=== PATIENT | male | born 1985 | race Caucasian/White ===

== ENCOUNTER 2023-02-24 11:20 | Outpatient (AMB) | payer OTHER, SELFPAY ==
[2023-02-24 12:47] VITALS: BP 120/80; PULSE 74; O2SAT 98; BMI 19.3
--- NOTE | 2023-02-24 12:47 | MHC.OFFWIV ---
Intake Vital Signs 02/24/23 12:47 Height 6 ft Weight 142 lb BMI 19.3 BP 120/80 Blood Pressure Location Rt brachial Position Sitting Pulse 74 Pulse Source Pulse Oximeter Pulse Oximetry (%) 98 Oxygen Delivery Method Room Air Intake Visit Reasons: TESTING LEAD Rash Shoulder/neck Lobby Intake Note: Patient here for a rash that started on the sides and traveled to the neck. He states it is very dry,itchy and spreading. Patient Tobacco Use Status: Never used Tobacco Allergies No Known Allergies Allergy (Verified 02/24/23 13:31) Medication List - Last Reconciled 02/24/23 by Olvin Miguel MD buprenorphine-naloxone 12-3 mg 15 mg sublingual DAILY Do you need a note to return to daycare/school/sports/work: Yes HPI TESTING LEAD Rash Shoulder/neck Lobby HPI Details 38-year-old male presents to the office for a sick visit. His history is very unreliable. Patient is reporting he has a rash in the neck in the past week. Initially the rash was around his groin which is now occurring around his neck. He was seen at a walk-in elsewhere and given prednisone to which she responded. He stopped taking the prednisone approximately of a week ago. He also reports that he was in [facility] for abdominal pain. Admits to history of narcotic abuse and is now taking Suboxone. Patient denies any IV drug use. [facility] Social History Patient Tobacco Use Status: Never used Tobacco Physical Exam Vital Signs: Last Vital Signs Pulse 74 02/24/23 12:47 BP 120/80 02/24/23 12:47 Pulse Ox 98 02/24/23 12:47 Oxygen Delivery Method Room Air 02/24/23 12:47 BMI result Body Mass Index 19.3 Skin Other: Several, diffuse, erythematous rash, each lesion is circular with raised edges and thickened overlying skin. Few scales are present. These lesions are identical in both the neck and the groin area. Assessment & Plan Assessment & Plan (1) Rash: Code(s): R21 - Rash and other nonspecific skin eruption Plan Triamcinolone cream prescribed. Patient has been seen at [facility] care before. I strongly recommended that he see them for a dermatology consult. Orders: Orders Basic Metabolic Panel Today R21 - Rash and other nonspecific skin eruption Liver Panel Today R21 - Rash and other nonspecific skin eruption HIV Ab/Ag Today R21 - Rash and other nonspecific skin eruption Complete Blood Count no Diff Today R21 - Rash and other nonspecific skin eruption Erythrocyte Sedimentation Rate Today R21 - Rash and other nonspecific skin eruption Coding Level of Care Code Est Pt Level 3 (03169) Diagnoses Rash R21
== END 2023-02-24 13:56 | disposition home or self-care (01) ==
PROVIDERS: Visit Provider Internal Medicine
DX: R21 Rash and other nonspecific skin eruption (principal)
CPT/HCPCS: 99213

== ENCOUNTER 2023-02-24 13:39 | Outpatient (REF) | payer OTHER, SELFPAY | END 2023-02-24 13:40 | disposition home or self-care (01) | LOC: HO.HMGCLDS 13:39 | PROVIDERS: Visit Provider Internal Medicine | DX: R21 Rash and other nonspecific skin eruption (principal) | CPT/HCPCS: 36415; 80048; 80076; 85027; 85652; 87389 ==

== ENCOUNTER 2024-04-04 16:17 | Emergency (ER) | payer OTHER, SELFPAY ==
--- NOTE | ~2024-04-04 | XR_ITS ---
EXAMINATION: XR ABDOMEN KUB CLINICAL INDICATION: Pain. COMPARISON: None available. TECHNIQUE: AP views of the abdomen. FINDINGS: Moderate air and stool throughout the bowel. Nonobstructive bowel gas pattern. No abnormal soft tissue calcification. No acute osseous abnormality. The visualized lung bases are clear. XR/XR KUB IMPRESSION: Moderate air and stool throughout the bowel. Electronically signed by: Elbert Degroot MD 04/04/2024 04:57 PM [facility]
[2024-04-04 16:21] VITALS: BP 130/80; PULSE 85; O2SAT 98
[2024-04-04 16:32] VITALS: BP 110/73; PULSE 83; RESP 18; TEMP 36.4; O2SAT 100; BMI 19.0
[2024-04-04] MEDS: 0.9 % Sodium Chloride 500 ML IV (16:48)
[2024-04-04] MEDS: Ketorolac Tromethamine 15 MG/ML VIAL IVPUSH (16:49)
[2024-04-04] MEDS: Metoclopramide HCl 10 MG/2 ML VIAL IVPUSH (16:49)
[2024-04-04 16:56] LABS: MANUAL DIFF FLAG NO
[2024-04-04 17:19] LABS: Alanine Aminotransferase 25 U/L (0-40); Albumin Level 4.5 g/dL (3.5-5.0); Alkaline Phosphatase 58 U/L (39-117); Anion Gap 11 (12-20); Aspartate Amino Transferase 30 U/L (5-37); Bilirubin Total 1.5 mg/dL (0.0-1.0); Blood Urea Nitrogen 18 mg/dL (9-16); Calcium 9.3 mg/dL (8.4-10.2); Carbon Dioxide 26 mmol/L (22-29); Chloride 109 mmol/L (96-108); Creatinine Clr Calc Pharmacy 102.3; Estimated Glomerular Filt Rate > 60; Glucose Random 80 mg/dL (60-115); Lipase 13 U/L (8-78); Potassium 3.7 mmol/L (3.3-5.1); Sodium 142 mmol/L (135-145); Total Protein 7.5 g/dL (6.5-8.0)
[2024-04-04 17:40] LABS: Basophils Percent Auto 0.4 % (0-2); Eosinophils Percent Auto 0.2 % (0-4); Hematocrit 41.3 % (42.0-52.0); Hemoglobin 14.2 g/dl (14.0-18.0); Imm Gran Abs Auto 0.01 X10*3/uL (0.00-0.03); Imm Gran Pct Auto 0.1 % (0.0-0.4); Lymphocytes Absolute Auto 4.5 X10*3/uL (1.2-4.9); Lymphocytes Percent Auto 45.7 % (20-40); Mean Corpuscular HGB Conc 34.4 g/dl (31.0-36.0); Mean Corpuscular Hemoglobin 29.6 pg (27.0-33.0); Mean Corpuscular Volume 86.2 fL (80.0-98.0); Mean Platelet Volume 9.3 fL (9.4-12.4); Monocytes Absolute Auto 0.8 X10*3/uL (0.1-1.2); Monocytes Percent Auto 7.6 % (2-11); Neutrophils Absolute Auto 4.6 x10*3/uL (2.0-8.3); Platelet Count 279 X10*3/uL (160-400); Red Blood Count 4.79 X10*6/uL (4.60-5.80); Red Cell Distribution Width 13.4 % (11.0-16.0); White Blood Count 9.9 X10*3/uL (4.8-10.8)
--- NOTE | 2024-04-04 17:49 | ED.ABDPAIN ---
HPI - Abdominal Pain General Chief Complaint: Abdominal Pain Stated Complaint: ABD PAIN/ BLOOD OUT OF RECTUM PER EMS Time Seen by Provider: 04/04/24 16:27 Source: patient Limitations: no limitations History of Present Illness ED Provider: Saadia Adorno PA-C HPI narrative: 39-year-old male with a history of opiate use disorder now on Suboxone presents with abdominal pain. Patient states the pain is across the entire lower abdomen, unable to describe the nature of the pain. Last normal bowel movement was 4 days ago. Patient admits that he does struggle with constipation. Over the past few days, he is only passing small amounts of hard stool. Associated nausea. Denies abdominal distention, inability to pass flatus, or vomiting. Related Data Home Medications ?Medication ?Instructions ?Recorded ?Confirmed buprenorphine 12 mg-naloxone 3 mg 15 mg sublingual DAILY 02/24/23 sublingual film Previous Rx's ?Medication ?Instructions ?Recorded triamcinolone acetonide 0.025 % 1 appl topical BID #15 grams 02/24/23 topical cream metoclopramide HCl 10 mg tablet 10 mg PO Q6H PRN nausea and 04/04/24 vomiting #8 tabs Allergies Allergy/AdvReac Type Severity Reaction Status Date / Time No Known Allergies Allergy Verified 04/04/24 16:33 Review of Systems Review of Systems Yes all other systems are reviewed and are negative Constitutional: Denies fatigue and Denies fever(s) Cardiovascular: Denies chest pain and Denies dyspnea Respiratory: Denies cough and Denies dyspnea Gastrointestinal: Reports abdominal pain, Denies bloating, Reports constipation, Reports nausea and Denies vomiting Endocrine: Denies fatigue PMFSH Past Medical History Attestation statement: The following information was validated with the patient. Social History Social History Patient Tobacco Use Status: Never used Tobacco Advance Directives: No Advance Directives Information Provided: No Physical Exam ED Vital Signs: Vital Signs - 24 hr 04/04/24 16:32 Temperature 97.6 F Pulse Rate 83 Respiratory Rate 18 Blood Pressure 110/73 Pulse Oximetry 100 Oxygen Delivery Method Room Air BMI result Body Mass Index 19.0 Const Other: Alert, overall well-appearing Orientation/consciousness: patient oriented x3 Resp Other: Nonlabored respiration Cardio Other: Normal peripheral perfusion GI Other: Abdomen is soft, nondistended, patient is guarding against my exam prior to palpating the abdomen, with a objective palpation, there was no guarding no rigidity. Skin Other: Warm dry no rash Neuro General: patient oriented x3, no focal motor deficits and CN's II-XI intact bilaterally Psych Other: Calm cooperative Medical Decision Making Medical Decision Making MDM Narrative: 39-year-old male with a history of opiate use disorder now on Suboxone presents with abdominal pain. Patient states the pain is across the entire lower abdomen, unable to describe the nature of the pain. Last normal bowel movement was 4 days ago. Patient admits that he does struggle with constipation. Over the past few days, he is only passing small amounts of hard stool. Associated nausea. Denies abdominal distention, inability to pass flatus, or vomiting. Problem: Constipation History: Per patient I have considered the following differential diagnoses: Fecal impaction, constipation, bowel obstruction Plan: Patient is likely constipated, he does not have any obstructive symptoms. We will screen basic labs, A KUB and give IV fluid Reglan I have independently reviewed the following tests: Labs: No leukocytosis, not anemic, no electrolyte abnormality KUB: XR/XR KUB IMPRESSION: Moderate air and stool throughout the bowel. Electronically signed by: Elbert Degroot MD 04/04/2024 04:57 PM [facility] Lab Data 04/04/24 16:49 04/04/24 16:49 Labs: Lab Results 04/04/24 Range/Units 16:49 WBC 9.9 (4.8-10.8) X10*3/uL RBC 4.79 (4.60-5.80) X10*6/uL Hgb 14.2 (14.0-18.0) g/dl Hct 41.3 L (42.0-52.0) % MCV 86.2 (80.0-98.0) fL MCH 29.6 (27.0-33.0) pg MCHC 34.4 (31.0-36.0) g/dl RDW 13.4 (11.0-16.0) % Plt Count 279 (160-400) X10*3/uL MPV 9.3 L (9.4-12.4) fL Immature Gran % (Auto) 0.1 (0.0-0.4) % Neut % (Auto) 46.0 (45-73) % Lymph % (Auto) 45.7 H (20-40) % [place] % (Auto) 7.6 (2-11) % Eos % (Auto) 0.2 (0-4) % Baso % (Auto) 0.4 (0-2) % Lymph # (Auto) 4.5 (1.2-4.9) X10*3/uL [place] # (Auto) 0.8 (0.1-1.2) X10*3/uL Eos # (Auto) 0.0 (0.0-0.4) X10*3/uL Baso # (Auto) 0.0 (0.0-0.2) X10*3/uL Abs Immat Gran (auto) 0.01 (0.00-0.03) X10*3/uL Absolute Neuts (auto) 4.6 (2.0-8.3) x10*3/uL Absolute Nucleated RBC 0.000 (0.0-0.012) X10*3/uL Nucleated RBC % (auto) 0.0 (0.0-0.2) /100WBC Sodium 142 (135-145) mmol/L Potassium 3.7 (3.3-5.1) mmol/L Chloride 109 H (96-108) mmol/L Carbon Dioxide 26 (22-29) mmol/L Anion Gap 11 L (12-20) BUN 18 H (9-16) mg/dL Creatinine 0.86 (0.5-1.4) mg/dL Estim Creat Clear Calc 102.3 Estimated GFR > 60 Random Glucose 80 (60-115) mg/dL Calcium 9.3 (8.4-10.2) mg/dL Magnesium 2.0 (1.6-2.6) mg/dL Total Bilirubin 1.5 H (0.0-1.0) mg/dL AST 30 (5-37) U/L ALT 25 (0-40) U/L Alkaline Phosphatase 58 (39-117) U/L Total Protein 7.5 (6.5-8.0) g/dL Albumin 4.5 (3.5-5.0) g/dL Lipase 13 (8-78) U/L Medications Administered Discontinued Medications Generic Name Dose Route Start Last Admin Trade Name Freq PRN Reason Stop Dose Admin Sodium Chloride 500 mls @ 500 mls/hr 04/04/24 16:29 04/04/24 16:48 Ns IV 04/04/24 17:28 500 mls/hr .Q1H ONE Administration Ketorolac Tromethamine 15 mg 04/04/24 16:29 04/04/24 16:49 Ketorolac Tromethamine 15 Mg/Ml Vial IVPUSH 04/04/24 16:30 15 mg ONCE ONE Administration Metoclopramide HCl 10 mg 04/04/24 16:29 04/04/24 16:49 Metoclopramide Hcl 10 Mg/2 Ml Vial IVPUSH 04/04/24 16:30 10 mg ONCE ONE Administration Discharge Plan Discharge Clinical Impression: Constipation Patient Disposition: Home, Self-Care Instructions: Constipation (ED) Additional Instructions: All of your labs were normal, the extra revealed that you are constipated. See home care instructions. The medication that you take, the Suboxone, is a constipating medication. You need to stay on a bowel regimen indefinitely to help prevent further episodes of constipation. In the meantime, you should take [id number] Colace, this is a stool softener, daily. You also need to take [id number] MiraLax, mix the powder with liquid per package instructions, drank the solution 2 to 3 times a day, until you begin having normal regular bowel movements. Once you clear your current stool burden, you may only require of the MiraLax a few times a week. Use the metoclopramide as needed for nausea. Follow up with your primary care provider as needed. Prescriptions: New metoclopramide HCl 10 mg tablet 10 mg PO Q6H PRN (Reason: nausea and vomiting) Qty: 8 0RF No Action buprenorphine-naloxone 12-3 mg film 15 mg sublingual DAILY triamcinolone acetonide 0.025 % cream 1 appl topical BID Qty: 15 0RF Stand Alone Forms: Work/School Release Print Language: Luxembourgish
[2024-04-04 18:08] VITALS: BP 110/73; PULSE 83; RESP 18; TEMP 36.4; O2SAT 100
== END 2024-04-04 18:09 | disposition home or self-care (01) ==
PROVIDERS: Physician Assistant Medical; Emergency Provider Emergency Medicine Emergency Medical Services
DX: R10.2 Pelvic and perineal pain (principal); K59.00 Constipation, unspecified; K92.1 Melena; R11.0 Nausea; Z79.899 Other long term (current) drug therapy
CPT/HCPCS: 36415; 74018; 80053; 83690; 83735; 85025; 96361; 96374; 96375; 99283; 99284; J1885; J2765

== ENCOUNTER 2025-02-08 13:18 | Outpatient (REF) | payer OTHER, SELFPAY ==
--- OUTSIDE RECORDS SUMMARY | 2025-02-08 13:15 | XMS_ITS | Encounter Summary ---
Author Organization [facility] [facility] Address [address] [place] [address] Care Team Providers Care Mechanical Handyman Name Role Phone Unavailable Primary Care Provider Unavailabl e Reason for Visit * Reason Comments OBAT F/U Encounter Details Date Type Department Care Team (Latest Contact Info) Description 02/08/2025 1:15 PM EDT Office Visit [facility] [address] [place] [address] Michael Man MD [address] [place], [place] [phone] Uncomplicated opioid dependence (CMS/HCC) (Primary Dx) Social History Tobacco Use Types Packs/Day Years Used Date Smoking Tobacco: Every Day Cigarettes Smokeless Tobacco: Never Alcohol Use Standard Drinks/Week Comments Not Currently 0 (1 standard drink = 0.6 oz pur e alcohol) Depression Answer Date Recorded Patient Health Questionnaire-9 Score 0 04/06/2024 Patient Health Questionnaire-9 Score 0 04/06/2024 Last PHQ-9: Questionnaire Data Not on file 1 06/06/2023 Housing Stability Answer Date Recorded What is your housing situation today? I have fabby ahrdy 04/06/[address] you li ve. Do you have problems with any of the following? None of the above 04/06/2024 Food Insecurity Answer Date Recorded Within the past 12 months, y ou worried that your food would run out before you got money to buy more: Never True 04/06/2024 Within the past 12 months,th e food you bought just didn't last and you didn't have enough money to get more: Never True Transportation Answer Date Recorded In the past 12 months, has l ack of transportation kept you from medical appts, meetings, work or from getting things needed for daily living? No 04/06/2024 Utilities Answer Date Recorded In the past 12 months, has t he electric, gas, oil or water company threatened to shut off services in your home? No 04/06/2024 Depression Answer Date Recorded Patient Health Questionnaire-2 Score 0 04/06/2024 Internet Access Answer Date Recorded Internet Access Q1 No 04/06/2024 Internet Access Q2 I do not want or need it 03/19 Sex and Gender Information Value Date Recorded Sex Assigned at Male 03/18/2022 10:40 AM EDT Legal Sex Male 10:40 AM EDT Gender Identity Male 03/18/2022 10:40 AM EDT Sexual Orientation Straight 03/18/2022 10 :40 AM EDT documented as of this encounter Progress Notes * Michael Man MD - 02/08/2025 1:15 PM EDT Subjective Patient ID: Mali Riojas is a 39 y.o. male. HPI Patient here today for Opioid Dependence RV. Patient on Suboxone dose of 16/4 mg On an 12 week schedule. Pt has been in the program for 2 years, 11 months. Induction date: 03/07/22. LFTs done 02/08/2025 Patient actively enrolled in behavioral health services. Commercial Singer: met with Raul nagy. DOMINIK GALEAS reviewed by provider. UTOX: not requested. Feels great . Taking Suboxone as prescribed. Takes Miralax prn Constipation. We discussed Sublocade; wants to discuss with his . Would like to to start tapering off Suboxone. Discussed slowly reducing dose at home, which he willtry. Has Narcan. Lives with and their 7 y.o. daughter and 's 16 y.o. daughter. Has 2 other daughters who live with their mother. Given Suboxone dental care instructions. He has upper dentures and is planning on having lower teeth extracted also. States I never took care of my teeth . Smoked 1/2 PPD. Now vapes. Had nightmares when using nicotine patches. No EtOH. Works at [employer]. The following portions of the chart were reviewed this encounter and updated as appropriate: Tobacco Allergies Meds Problems Med Hx Surg Hx Fam Hx Review of Systems Constitutional: Negative for fever. Respiratory: Negative for shortness of breath. Cardiovascular: Negative for chest pain. Gastrointestinal: Negative for abdominal pain. Skin: Negative for rash. Neurological: Negative for headaches. Objective Physical Exam Vitals and nursing note reviewed. Constitutional: Appearance: Normal appearance. HENT: Head: Normocephalic and atraumatic. Nose: Nose normal. Eyes: Conjunctiva/sclera: Conjunctivae normal. Pupils: Pupils are equal, round, and reactive to light. Pulmonary: Effort: Pulmonary effort is normal. Skin: General: Skin is warm and dry. Neurological: Mental Status: He is alert. Gait: Gait is intact. Psychiatric: Mood and Affect: Mood and affect normal. Behavior: Behavior normal. Procedures Assessment/Plan Diagnoses and all orders for this visit: Uncomplicated opioid dependence (CMS/HCC) Recovery support, harm reduction (including Narcan) and behavioral health attendance reviewed. Continue Suboxone 16/4 mg on 12 week schedule. Has Narcan. Labs were done today. documented in this encounter Plan of Treatment Upcoming Encounters Date Type Department Care Team (Late st Contact Info) Description 05/03/2025 1:15 PM EST Clinical Support [facility] [address] [place] [phone] Marcy Loera RN documented as of this encounter Visit Diagnoses Diagnosis Uncomplicated opioid dependence (CMS/HCC)- Primary documented in this encounter Additional Health Concerns Assessment Noted Time PHQ-9 Depression Total Score: 0 04/06/20 24 1:24 PM EST documented as of this encounter
--- OUTSIDE RECORDS SUMMARY | 2025-02-08 16:19 | XMS_ITS | Encounter Summary ---
Author Organization [employer] [facility] Address [address] [facility] [address] [place] [address] Care Team Providers Care Job Checker Name Role Phone Unavailable Primary Care Provider Unavailabl e Reason for Visit * Reason Comments Med Refill Encounter Details Date Type Department Care Team (Late st Contact Info) Description 11/09/2024 Refill [facility] [address] [place], [place] [phone] Michael Man MD [address] [place], [place] [phone] Uncomplicated opioid dependence (CMS/HCC) Social History Tobacco Use Types Packs/Day Years [...] your housing situation today? I have fabby hardy 04/06/[address] you li [...] AM EDT documented as of this encounter Plan of Treatment Upcoming Encounters Date Type Department Care Team (Late st Contact Info) Description 05/03/2025 1:15 PM EST Clinical Support [facility] [address] [place] [address] Marcy Loera RN documented as of this encounter Visit Diagnoses Diagnosis Uncomplicated opioid dependence (CMS/HCC) documented in this encounter Additional Health Concerns Assessment Noted Time PHQ-9 Depression Total Score: 0 04/06/20 24 1:24 PM EST documented as of this encounter
--- OUTSIDE RECORDS SUMMARY | 2025-02-08 16:19 | XMS_ITS | Encounter Summary ---
Author Organization [employer] Address [address] [place] [address] Care Team Providers Care Fitting Room Supervisor Name Role Phone Unavailable Primary Care Provider Unavailabl e Reason for Visit * Reason Comments Med Refill Encounter Details Date Type Department Care Team (Late st Contact Info) Description 05/25/2024 Refill [facility] [address] [place] [address] Tony Ruth MD [address] [place], [place] [phone] Uncomplicated opioid dependence (CMS/HCC) Social History Tobacco [...] Description 05/03/2025 1:15 PM EST Clinical Support [facility] [address] [place] [id number] Marcy Loera RN documented as of this encounter Visit Diagnoses Diagnosis Uncomplicated opioid dependence (CMS/HCC) documented in this encounter Additional Health Concerns Assessment Noted Time PHQ-9 Depression Total Score: 0 04/06/20 24 1:24 PM EST documented as of this encounter
--- OUTSIDE RECORDS SUMMARY | 2025-02-08 16:19 | XMS_ITS ---
Author Name [facility] Organization Unknown Care Team Organization Name Specialty Phone Email Start Date End Da te [facility] Sandrine Sanchez Primary Care 03/18/202312/17
--- OUTSIDE RECORDS SUMMARY | 2025-02-08 16:19 | XMS_ITS | Encounter Summary ---
Author Organization [employer] [facility] Address [address] [place] [address] Care Team Providers Care Medical Record Technician Name Role Phone Unavailable Primary Care Provider Unavailabl e Encounter Details Date Type Department Care Team (Latest Contact Info) Description 02/08/2025 Travel Social History Tobacco Use Types Packs/Day Years [...] Description 05/03/2025 1:15 PM EST Clinical Support [address] [phone] Marcy Loera RN documented as of this encounter Visit Diagnoses Not on filedocumented in this encounter Additional Health Concerns Assessment Noted Time PHQ-9 Depression Total Score: 0 04/06/20 24 1:24 PM EST documented as of this encounter
--- OUTSIDE RECORDS SUMMARY | 2025-02-08 16:19 | XMS_ITS | Encounter Summary ---
Author Organization [facility] Address [address] [place] [address] Care Team Providers Care Ladle Liner Helper Name Role Phone Unavailable Primary Care Provider Unavailabl e Reason for Visit * Reason Onset Date Comments Medication Question 01/29/2023 Encounter Details Date Type Department Care Team ([facility] Contact Info) Description 01/29/2023 Telephone [facility] [address] [place] [address] Shon Calhoun MD [address] [place] [address] Medication Question Social History Tobacco Use Types Packs/Day Years Used Date Smoking Tobacco: Every Day Cigarettes Smokeless Tobacco: Never Alcohol Use Standard Drinks/Week Comments Not Currently 0 (1 standard drink = 0.6 oz pur e alcohol) Sex and Gender Information Value Date Recorded Sex Assigned at Male 03/18/2022 10:40 AM EDT Legal Sex Male 10:40 AM EDT Gender Identity Male 03/18/2022 10:40 AM EDT Sexual Orientation Straight 03/18/2022 10 :40 AM EDT documented as of this encounter Miscellaneous Notes * Telephone Encounter - Poonam Ross - 01/29/2023 2:27 PM EDT Tc from pt stating that on last visit with Dr. Man it was stated to please call in for medication buprenorphine-naloxone (Suboxone) 12-3 MG per sublingual film to have an increase of it to 18 mg before medication runs out. Please contact pt at [phone] documented in this encounter Plan of Treatment Upcoming Encounters Date Type Department Care Team ([facility] st Contact Info) Description 05/03/2025 1:15 PM EST Clinical Support [address] [address] Marcy Loera RN documented as of this encounter Visit Diagnoses Not on filedocumented in this encounter
--- OUTSIDE RECORDS SUMMARY | 2025-02-08 16:19 | XMS_ITS | Encounter Summary ---
Author Organization [facility] Address [address] [place] [address] Care Team Providers Care Custom Designer Name Role Phone Unavailable Primary Care Provider Unavailabl e Encounter Details Date Type Department Care Team (Late Contact Info) Description 08/28/2023 Orders Only [facility] [address] [place] [address] Marcy Loera RN Uncomplicated opioid dependence (CMS/HCC) Social History Tobacco [...] Encounters Date Type Department Care Team (Late Contact Info) Description 05/03/2025 1:15 PM EST Clinical Support [facility] [address] [place] [address] Marcy Loera RN Scheduled Orders Name Type Priority Associated Diagnoses Orde r Schedule Hepatic Function Panel Lab Routine Uncomplicated opioid dependence (CMS/HCC) Expected: 08/28/2023 (Approximate), Expires: 08/27/2024 Hepatitis A Antibody, Total Lab Routine Uncomplicated opioid dependence (CMS/HCC) Expected: 08/28/2023 (Approximate), Expires: 08/27/2024 Hepatitis B Core Antibody, Total Lab Routine Uncomplicated opioid dependence (CMS/HCC) Expected: 08/28/2023 (Approximate), Expires: 08/27/2024 Hepatitis B Surface Antibody, Qualitative Lab Routine Uncomplicated opioid dependence (CMS/HCC) Expected: 08/28/2023 (Approximate), Expires: 08/27/2024 Hepatitis B surface antigen, EIA Lab Routine Uncomplicated opioid dependence (CMS/HCC) Expected: 08/28/2023 (Approximate), Expires: 08/27/2024 Hepatitis C Antibody with Reflex to HCV, RNA, Quantitative, Real-Time PCR Lab Routine Uncomplicated opioid dependence (CMS/HCC) Expected: 08/28/2023 (Approximate), Expires: 08/27/2024 HIV-1/2 Antigen and Antibodies, Fourth Generation, with Reflexes Lab Routine Uncomplicated opioid dependence (CMS/HCC) Expected: 08/28/2023 (Approximate), Expires: 08/27/2024 Syphilis Screen Lab Routine Uncomplicated opioid dependence (CMS/HCC) Expected: 08/28/2023 (Approximate), Expires: 08/27/2024 T-SPOT .TB Lab Routine Uncomplicated opioid dependence (CMS/HCC) Expected: 08/28/2023 (Approximate), Expires: 08/27/2024 documented as of this encounter Visit Diagnoses Diagnosis Uncomplicated opioid dependence (CMS/HCC) documented in this encounter
--- OUTSIDE RECORDS SUMMARY | 2025-02-08 16:19 | XMS_ITS | Clinical Summary ---
Author Organization [employer] Address [address] [facility] [address] [place] [address] Care Team Providers Care Director Of Physician Practices Name Role Phone Unavailable Primary Care Provider Unavailabl e Allergies No known active allergies Medications naloxone (Narcan) 4 mg/0.1 mL nasal spray Administer 4 mg into affected nostril(s) if needed for opioid reversal. May repeat every 2-3 minutes if needed, alternating nostrils, until medical assistance becomes available. Active nicotine polacrilex (Commit) 4 MG lozenge Dissolve 1 lozenge (4 mg) in the mouth every 2 (two) hours if needed for smoking cessation. 100 lozenge 12/18/19 23 Active buprenorphine -naloxone (Suboxone) 12-3 MG per sublingual filmIndicatio ns:Uncomplica ivana opioid dependence (CMS/HCC) Place 1 Film under the tongue Once per day for 28 days. 28 Film 1 12/12/19 24 Active buprenorphine -naloxone (Suboxone) 4-1 MG per sublingual filmIndicatio ns:Uncomplica ivana opioid dependence (CMS/HCC) Place 1 Film under the tongue Once per day for 28 days. 28 Film 1 12/12/19 24 Active nicotine (Nicoderm CQ) 14 MG/24HR patch Place 1 patch on the skin 1 (one) time each day at the same time. 42 patch 12/16/19 24 Active nicotine (Nicoderm CQ) 7 MG/24HR patch Place 1 patch on the skin 1 (one) time each day at the same time. 14 patch 12/16/19 24 Active polyethylene glycol, PEG, 3350 (MiraLax) 17 GM/SCOOP powder Take 17 g by mouth Once per day. 510 g 3 07/28/19 25 Active Buprenorphine HCl-Naloxone HCl (Suboxone) 8-2 MG SL filmIndicatio ns:Uncomplica ivana opioid dependence (CMS/HCC) Place 1 Film under the tongue 2 times daily. 56 Film 2 02/01/20 25 025 Active Buprenorphine HCl-Naloxone HCl (Suboxone) 8-2 MG SL filmIndicatio ns:Uncomplica ivana opioid dependence (CMS/HCC) Place 1 Film under the tongue 2 times daily. 56 Film 2 11/17/19 25 025 Discontinued(Re order (will not trigger notification to Pharmacy)) Active Problems Problem Noted Date Diagnosed Date Gallbladder polyp 02/11/2023 04/22/2023 Overview (04/22/2023): [facility] ER 02/05/23: Per impression common duct is mildly dilated to 0.7 cm, with smooth tapering distally. No obstructing stones visualized. This is of unclear clinical significance; correlate with laboratory testings for any signs of biliary obstruction. No gallstones seen. No sonographic evidence of acute cholecystitis. 0.2 cm gallbladder polyp . Opioid use disorder 04/10/2022 Tobacco use disorder 06/28/2015 Encounters Date Type Department Care Team Description 02/08/2025 1:15 PM EDT Office Visit [facility] [address] [place] [phone] Michael Man MD Uncomplicated opioid dependence (CMS/HCC) (Primary Dx) 02/08/2025 Travel 01/31/2025 Refill [facility] [address] [place] [address] Marcy Loera RN Uncomplicated opioid dependence (CMS/HCC) 11/16/2024 1:00 PM EDT Office Visit [facility] [address] [place] [address] Michael Man MD Uncomplicated opioid dependence (CMS/HCC) (Primary Dx) 11/16/2024 Travel 11/09/2024 Refill [facility] [address] [place] [address] Michael Man MD Uncomplicated opioid dependence (CMS/HCC) from Last 3 Months Immunizations Immunization Administration Dates Next Due Tdap 11/22/2015 Social History Tobacco Use Types Packs/Day Years Used Date Smoking Tobacco: Every Day Cigarettes Smokeless Tobacco: Never Tobacco Cessation:Ready to Q uit: Not Asked; Counseling Given: Not Answered Alcohol Use Standard Drinks/Week Comments Not Currently [...] Orientation Straight 03/18/2022 10 :40 AM EDT Last Filed Vital Signs Vital Sign Reading Time Taken Comments Blood Pressure 130/81 04/06/2024 1:23 PM EST Pulse 113 04/06/2024 1:23 PM EST Temperature 36.4 C (97.5 F) 04/06/2024 1:23 PM EST Respiratory Rate - - Oxygen Saturation - - Inhaled Oxygen Concentration - - Weight 76.1 kg (167 lb 12.8 oz) 022 12:10 AM EDT Height 182.9 cm (6') 03/07/2022 12:10 AM EDT Body Mass Index 22.76 03/07/2022 12:10 AM EDT Plan of Treatment Upcoming Encounters Date Type Department Care Team (Late st Contact Info) Description 05/03/2025 1:15 PM EST Clinical Support [address] [id number] Marcy Loera, VALERIE Health Maintenance Due Date Last Done Comments HIV Screening 1984 Lipid Panel 1984 Family Planning (PISQ) 02/09/1999 HPV Vaccines (1 - Male 3-dos e series) 02/09/1999 Hepatitis C Screening 02/09/2002 Hepatitis B Vaccines (1 of 3 - 19+ 3-dose series) 02/09/2003 Pneumococcal Vaccine: Pediatrics (0 to 5 Years) and At-Risk Patients (6 to 49) Years (1 of 2 - PCV) 02/09/2003 COVID-19 Vaccine ( - 2023-2 5 season) 2025 Influenza Vaccine (#1) 2025 Alcohol/Substance Use Screening 04/06/2025 04/06/2024 Depression Screening 04/06/2025 04/06/2024, 04/06/2024 SDOH Screening 04/06/2025 04/06/2024 DTaP/Tdap/Td Vaccines (2 - T d or Tdap) 11/21/2025 11/22/2015 Disability Screening 02/08/2026 02/08/2025 Tobacco Screening 02/08/2026 02/08/2025 Zoster Vaccines (1 of 2) 02/09/2034 RSV Patients and Patients Aged 60 years or older (1 - 1-dose 75+ series) 02/09/2059 HIB Vaccines Aged Out No longer eligi ble based on patient's age to complete this topic Hepatitis A Vaccines Aged Out No long er eligible based on patient's age to complete this topic IPV Vaccines Aged Out No longer eligi ble based on patient's age to complete this topic Meningococcal B Vaccine Aged Out No l onger eligible based on patient's age to complete this topic Meningococcal Vaccine Aged Out No florencio shun eligible based on patient's age to complete this topic RSV under 20 months Aged Out No longe r eligible based on patient's age to complete this topic Rotavirus Vaccines Aged Out No longer eligible based on patient's age to complete this topic Procedures Procedure Name Priority Date/Time Associated Diagnosis Comments POCT LELAND-14 URINE DRUG SCREEN Routine 11/16/2024 1:14 PM EDT Uncomplicated opioid dependence (CMS/HCC) from Last 3 Months Results * (ABNORMAL) POCT LELAND-14 Urine Drug Screen (11/16/2024 1:14 PM EDT) THC Positive(A) Negative Cocaine Screen, Urine Negative Negative Opiate Screen, Urine Negative Negative Methamphetamine Screen Urine Negative Negative Amphetamine Screen, Urine Negative Negative Benzodiazepines Screen, Urine Negative Negative Barbiturate Screen, Urine Negative Negative Methadone Screen, Urine Negative Negative Buprenophine Screen, Urine Positive(A) Negative TCA, Urine Negative Negative MDMA Urine Negative Negative ng/mL Oxycodone Screen, Urine Negative Negative Phencyclidine (PCP), Urine Negative Negative Fentanyl, Urine Negative Negative Urine Urine specimen obtained by clean catch procedure / Unknown 11/16/2024 1:14 PM EDT Michael Man MD POINT OF CARE TEST ENTER/EDIT OR DERABLES Final Result from Last 3 Months Insurance [facility]
--- OUTSIDE RECORDS SUMMARY | 2025-02-08 16:19 | XMS_ITS | Encounter Summary ---
Author Organization [facility] [facility] Address [address] [facility] [address] [place] [address] Care Team Providers Care Hazardous Materials Waste Technician Name Role Phone Unavailable Primary Care Provider Unavailabl e Reason for Visit * Reason Onset Date Comments New patient 01/09/2023 Encounter Details Date Type Department Care Team (Late st Contact Info) Description 01/09/2023 Telephone [facility] [address] [place] [address] [phone] Shon Calhoun MD [address] [place] [address] [phone] New patient Social History Tobacco Use Types Packs/Day Years Used Date Smoking Tobacco: Never Assessed Sex and Gender Information Value Date Recorded Sex Assigned at Male 03/18/2022 10:40 AM EDT Legal Sex Male 10:40 AM EDT Gender Identity Male 03/18/2022 10:40 AM EDT Sexual Orientation Straight 03/18/2022 10 :40 AM EDT documented as of this encounter Miscellaneous Notes * Telephone Encounter - Poonam Ross - 01/09/2023 10:35 AM EDT Pt has been transfer over to wait list for [employer] [facility]. [facility] SINCE 12/03/2022 documented in this encounter Plan of Treatment Upcoming Encounters Date Type Department Care Team (Late st Contact Info) Description 05/03/2025 1:15 PM EST Clinical Support [facility] [address] [place] [address] [phone] Marcy Loera RN documented as of this encounter Visit Diagnoses Not on filedocumented in this encounter
[2025-02-08 16:35] LABS: Alanine Aminotransferase 22 U/L (0-40); Albumin Level 4.5 g/dL (3.5-5.0); Alkaline Phosphatase 73 U/L (39-117); Aspartate Amino Transferase 38 U/L (5-37); Total Protein 7.3 g/dL (6.5-8.0)
[2025-02-09 09:01] LABS: HBS Num1 848.24 mIU/mL (0-7.99); HBc Num1 0.03 S/CO (0.00-0.79); HIV Num 1 0.06 S/CO (0.00-0.99); ~HepC Num1 0.06 S/CO (0.00-0.79); ~Hepatitis B Surface Antibody REACTIVE (Nonreactive); ~Hepatitis C Antibody Nonreactive (Nonreactive)
[2025-02-09 09:11] LABS: Syphilis Screen Nonreactive (Nonreactive)
[2025-02-09 10:10] LABS: HBsAGNum1 0.27 S/CO (0.00-0.99); Hepatitis B Surface Antigen Negative (Negative)
[2025-02-11 08:19] LABS: ~Hepatitis A Antibody IgG 3.41 S/CO (0.00-0.99)
== END 2025-02-08 13:19 | disposition home or self-care (01) ==
LOC: HO.HHCL 13:18
PROVIDERS: Visit Provider Emergency Medicine
DX: Z01.84 Encounter for antibody response examination (principal); F11.20 Opioid dependence, uncomplicated; Z11.4 Encounter for screening for human immunodeficiency virus [HIV]
CPT/HCPCS: 36415; 80076; 86481; 86704; 86706; 86708; 86780; 86803; 87340; 87389